=== PATIENT | female | born 1990 | race Caucasian/White ===

== ENCOUNTER 2019-01-09 12:20 | Emergency (ER) | payer OTHER ==
[~2019-01-09] VITALS: Ht 165.1 cm; Wt 79.4 kg
[2019-01-09 12:22] VITALS: Ht 165.1 cm; Wt 79.4 kg
[2019-01-09 13:01] VITALS: BP 126/66
== END 2019-01-09 13:01 | disposition home or self-care (01) ==
LOC: ED 12:20
DX: T23.101A Burn of first degree of right hand, unspecified site, initial encounter (principal); T31.0 Burns involving less than 10% of body surface; J45.909 Unspecified asthma, uncomplicated; X12.XXXA Contact with other hot fluids, initial encounter; Y93.89 Activity, other specified; Y92.89 Other specified places as the place of occurrence of the external cause; Y99.8 Other external cause status